=== PATIENT | female | born 1960 | race Caucasian/White ===

== ENCOUNTER → 2023-08-16 08:15 | Outpatient (REF) | payer MEDICARE, OTHER, SELFPAY | LOC: HWWDC 08:15 | PROVIDERS: ATTENDING PHYSICIAN Internal Medicine | DX: Z12.31 Encounter for screening mammogram for malignant neoplasm of breast (principal) | CPT/HCPCS: 77063; 77067 ==

== ENCOUNTER 2024-03-22 11:25 | Emergency (ER) | payer MEDICARE, OTHER, SELFPAY ==
[2024-03-22 11:27] VITALS: BP 133/83
--- NOTE | 2024-03-22 12:00 | ED.GENMED ---
History of Present Illness
<Brenna Huynh MD, Resident - Last Filed: 03/22/24 13:05>
General
Chief Complaint: Musculo-Skeletal Complaint
Time Seen by Provider: 03/22/24 11:47
History of Present Illness
History of Present Illness:
63-year-old female presenting with swelling and redness of right index finger. Patient notes she noticed swelling and pain of her right index finger after working with monet (roses) last . This Monday thorn was taken out by a
physician and patient was started on antibiotics (Keflex 500 4 times daily) by her PCP since yesterday. Denies fever, chills, drainage.
Review of Systems
<Brenna Huynh MD, Resident - Last Filed: 03/22/24 13:05>
Review of Systems
Constitutional: Reports no symptoms
EENT: Reports no symptoms
Respiratory: Reports no symptoms
Cardiac: Reports no symptoms
ABD/GI: Reports no symptoms
: Reports no symptoms
Musculoskeletal: Reports no symptoms
Skin: Reports other (Pain and swelling of distal right index finger)
Neurological: Reports no symptoms
Endocrine: Reports no symptoms
Hematologic/Lymphatic: Reports no symptoms
Psychiatric: Reports no symptoms
Phy Exam
<Brenna Huynh MD, Resident - Last Filed: 03/22/24 13:05>
Physical Exam
Physical Exam:
GENERAL: Alert , in no apparent distress
EYE: pupils equal and reactive
NECK: Supple, no significant adenopathy.
ENT: o/p clr, mmm.
CARDIAC: Regular rate and rhythm .
LUNGS: Clear breath sounds bilaterally, no acute respiratory distress, no wheezes/rales/rhonchi
ABDOMEN: Soft, without focal tenderness, no r/g, no cvat
NEUROLOGICAL: Alert and oriented, no focal neuro deficits
SKIN: Warm and dry, skin intact.
MUSCULOSKELETAL: Mild swelling and erythema of distal right index finger. No warmth no drainage. Range of motion normal.
PSYCH: Normal and appropriate interaction.
Course
<Brenna Huynh MD, Resident - Last Filed: 03/22/24 13:05>
Vital Signs
Initial and Last Documented VS:
Initial Vital Signs
Temp Pulse Resp BP Pulse Ox
36.8 C 69 16 133/83 98
03/22/24 11:27 03/22/24 11:27 03/22/24 11:27 03/22/24 11:27 03/22/24 11:27
Last Documented Vital Signs
Temp Pulse Resp BP Pulse Ox
36.8 C 69 16 133/83 98
03/22/24 11:27 03/22/24 11:27 03/22/24 11:27 03/22/24 11:27 03/22/24 11:27
<Edmundo Harding, DO - Last Filed: 03/22/24 13:11>
Vital Signs
Initial and Last Documented VS:
Initial Vital Signs
Temp Pulse Resp BP Pulse Ox
36.8 C 69 16 133/83 98
03/22/24 11:27 03/22/24 11:27 03/22/24 11:27 03/22/24 11:27 03/22/24 11:27
Last Documented Vital Signs
Temp Pulse Resp BP Pulse Ox
36.8 C 69 16 133/83 98
03/22/24 11:27 03/22/24 11:27 03/22/24 11:27 03/22/24 11:27 03/22/24 11:27
<Brenna Huynh MD, Resident - Last Filed: 03/22/24 13:05>
MDM/Problems Addressed
Differential Diagnosis Includes:
Right index finger cellulitis
MDM/Problems Addressed:
- Discussed case with ID physician, Dr. Caal. Recommended no work up for sporotrichosis is indicated. Pt advised to continue Keflex and return to the ED with worsening of symptoms.
<Brenna Huynh MD, Resident - Last Filed: 03/22/24 13:05>
*Critical Care Note
Total Time (30-74mins, 75-104mins- exclusive of procedures): Not Applicable
ED Attending Note
<Brenna Huynh MD, Resident - Last Filed: 03/22/24 13:05>
-
Portions of this chart may have been created with voice recognition software.� Occasional wrong word or��sound alike� substitutions may have occurred due to the inherent limitations of voice recognition software.
<Edmundo Harding DO - Last Filed: 03/22/24 13:11>
ED Attending Note
Patient seen and examined by attending physician: Yes
I performed the substantive portion of visit, reviewed & personally made and approve the management plan that is documented in note by myself or FABY.: Yes
ED Attending Note:
I evaluated the patient at bedside. ID was notified by the resident and Dr. Caal has low suspicion for sporotrichosis as that would typically take months to present.
Discharge Plan
Departure
Patient Disposition: Home (Routine Discharge)
Date of Disposition: 03/22/24
Time of Disposition: 13:03
Patient with high blood pressure during this ER visit?: No
Discharge Problem:
Cellulitis
Instructions: Cellulitis (Skin Infection), Adult ED
Referrals:
Danielle Marcelo DO [Family Provider] -
Activity Restrictions/Additional Instructions:
We notified the infectious disease doctor. He indicates that sporotrichosis would take months to present. Therefore I do not recommend any other changes. You can continue/finish the Keflex however do not see any need for admission to the hospital
or change in antibiotics.
Interventions
Interventions:
*Risk Screen - Suicide Last Done: 03/22/24 11:27
*General Assessment Last Done: 03/22/24 11:27
*Neglect/Abuse Screening Last Done: 03/22/24 11:27
*ED COVID-19 Vaccine History Last Done: 03/22/24 11:42
ED-Musculoskeletal Assessment Last Done: 03/22/24 11:44
Discharge Date and Time
Print Language: VINCENTIAN
== END 2024-03-22 13:17 | disposition home or self-care (01) ==
LOC: EMR 11:25
PROVIDERS: EMERGENCY PHYSICIAN Emergency Medicine; FAMILY PHYSICIAN Family Medicine
DX: L03.011 Cellulitis of right finger (principal)
CPT/HCPCS: 99282

== ENCOUNTER 2024-05-13 11:15 | Emergency (ER) | payer MEDICARE, OTHER, SELFPAY ==
[2024-05-13 11:55] VITALS: BP 128/82
--- NOTE | 2024-05-13 11:57 | ED.SKININJ ---
HPI-Injury
<Lissette Kim NP - Last Filed: 05/13/24 21:16>
General
Chief Complaint: Head Injury
Time Seen by Provider: 05/13/24 12:35
<Kallie Molina PA-C - Last Filed: 05/13/24 18:21>
General
Source: patient
Exam Limitations: none
Nursing documentation reviewed up to this point in time: agreed with
History of Present Illness-Injury
Is this injury a work related problem?: No
Is pt an associate of [facility]?: No
Initial Injury comments:
This is a 63-year-old female with past medical history of cholesterol takes 1 baby aspirin daily presents emergency department today with concerns of a scalp laceration. She reports that today she was going to put a large trash can that was on its
side into the upright position when she slipped on ice and fell forward into the sharp lid of the trash can, cutting her scalp. She does note a mild headache at the site. She denies dizziness, lightheadedness, chest pain, shortness of breath, neck
pain, chest pain, abdominal pain. After the injury happened, she got up on her own and felt okay but then she noticed blood all over the trash can and altered bystanders on the road who called EMS. She states that her tetanus needs to the be
updated.
ED Provider Triage
<Lissette Kim SELECTOR PACKER - Last Filed: 05/13/24 21:16>
-
Patient seen by provider in Triage?: Seen in Triage
Attestation: A medical screening examination has been initiated by a qualified medical provider. Based on the assessment performed at this time, it has been determined that an emergent medical condition may exist and the patient has been informed
that further medical evaluation and possible additional diagnostic testing may be needed.
HPI: In her driveway, pulling in her trash can, she slipped fell forward struck her frontal scalp on the edge of the trash can causing laceration. No LOC. Got herself up, saw blood, went back down on her knees, bystander saw her and called EMS. Pain
at sight of impact, no general headache. Pain 1/10 at site. No neuro deficits. Denies neck pain. Hard C collar removed in triage.
Had Tdap in 2019
GENERAL: Alert , in no apparent distress
EYE: No visual abnormalities.
NECK: Trachea midline
ENT: No visible abnormalities.
LUNGS: No acute respiratory distress
NEUROLOGICAL: Alert and oriented
SKIN: Skin intact. No visible changes.
MUSCULOSKELETAL: Moving extremities normally. No spinal bony tenderness.
PSYCH: Normal and appropriate interaction.
This is a medical evaluation conducted in person to initiate diagnostic evaluation and provide initial therapeutics. Please see further documentation by the treating clinician.
Review of Systems
<Kallie Molina PA-C - Last Filed: 05/13/24 18:21>
Review of Systems
All Other Systems: ROS reviewed and negative except as documented in HPI and ROS
Phy Exam
<Kallie Molina PA-C - Last Filed: 05/13/24 18:21>
Physical Exam
Physical Exam:
General: Patient is well appearing and in no acute distress; non-toxic
Skin: 5 cm bleeding curved laceration noted to the top of the scalp
Head: See above. Negative raccoon sign, negative werner sign
Eyes: Sclera non-icteric. EOMs intact. PERRLA.
Neck: Full range of motion of cervical spine, midline spinal tenderness noted
Cardiac: Regular rate and rhythm, no murmurs
Peripheral Vascular: No lower extremity swelling or edema
Pulm: Normal respiratory effort
Abdomen: No abdominal tenderness to palpation
MSK: 5/5 strength in bilateral upper and lower extremeties
Neuro: CN II-XII intact, no focal neurologic deficits.
Psychiatric: Appropriate mood and affect.
Course
<Lissette V. Day, SELECTOR PACKER - Last Filed: 05/13/24 21:16>
Orders/Labs/Results
Orders:
Orders
05/13/24 12:56
Tetanus/Diphth/Acelpertussis [Adacel] 0.5 ml IM .ONCE ONE
05/13/24 13:36
CT Head W/o Iv Contrast Urgent
Comment:
Reason For Exam: head trauma, headache
Vital Signs
Initial and Last Documented VS:
Initial Vital Signs
Temp Pulse Resp BP Pulse Ox
98.1 F 84 18 128/82 99
05/13/24 11:55 05/13/24 11:55 05/13/24 11:55 05/13/24 11:55 05/13/24 11:55
Last Documented Vital Signs
Temp Pulse Resp BP Pulse Ox
98.1 F 80 15 117/68 100
05/13/24 11:55 05/13/24 15:59 05/13/24 15:59 05/13/24 15:59 05/13/24 15:59
<Kallie Molina PA-C - Last Filed: 05/13/24 18:21>
Orders/Labs/Results
Orders:
Orders
05/13/24 12:56
Tetanus/Diphth/Acelpertussis [Adacel] 0.5 ml IM .ONCE ONE
05/13/24 13:36
CT Head W/o Iv Contrast Urgent
Comment:
Reason For Exam: head trauma, headache
Vital Signs
Initial and Last Documented VS:
Initial Vital Signs
Temp Pulse Resp BP Pulse Ox
98.1 F 84 18 128/82 99
05/13/24 11:55 05/13/24 11:55 05/13/24 11:55 05/13/24 11:55 05/13/24 11:55
Last Documented Vital Signs
Temp Pulse Resp BP Pulse Ox
98.1 F 80 15 117/68 100
05/13/24 11:55 05/13/24 15:59 05/13/24 15:59 05/13/24 15:59 05/13/24 15:59
<Rosie Munoz MD - Last Filed: 05/13/24 13:36>
Orders/Labs/Results
Orders:
Orders
05/13/24 12:56
Tetanus/Diphth/Acelpertussis [Adacel] 0.5 ml IM .ONCE ONE
05/13/24 13:36
CT Head W/o Iv Contrast Urgent
Comment:
Reason For Exam: head trauma, headache
Vital Signs
Initial and Last Documented VS:
Initial Vital Signs
Temp Pulse Resp BP Pulse Ox
98.1 F 84 18 128/82 99
05/13/24 11:55 05/13/24 11:55 05/13/24 11:55 05/13/24 11:55 05/13/24 11:55
Last Documented Vital Signs
Temp Pulse Resp BP Pulse Ox
98.1 F 80 15 117/68 100
05/13/24 11:55 05/13/24 15:59 05/13/24 15:59 05/13/24 15:59 05/13/24 15:59
Procedures
<Kallie Molina PA-C - Last Filed: 05/13/24 18:21>
Laceration Closure
middle scalp:
Status of Wound: clean
Size of Wound in cm: 5
Preparation: cleaned with saline
Anesthesia: 1% Lidocaine with epi
Revision/Debridement: routine- no revision
Wound exploration: explored to base- no FB
Type of Closure: single layer closure
Skin Closure Material: skin blaine
Number of sutures: 12
Additional information:
12 blaine
<Kallie Molina PA-C - Last Filed: 05/13/24 18:21>
MDM/Problems Addressed
Differential Diagnosis Includes:
see below
MDM/Problems Addressed:
NUMBER AND COMPLEXITY OF PROBLEMS ADDRESSED AT THE ENCOUNTER
� Chronic conditions affecting care: hlp
� Acute Exacerbation and/or Progression of Chronic Illness:
� Differential Diagnosis includes: scalp laceration, contusion, epidural hematoma, subdural hematoma, concussion
AMOUNT AND/OR COMPLEXITY OF DATA TO BE REVIEWED AND ANALYZED
� I performed an independent evaluation of and my interpretation is:
CT: no evidence for acute intracranial hemorrhage
Other:
� Review of other/old records: reviewed previous ER physician documentation from 03/22/2024, patient seen for cellulitis of index finger, no discharge summaries in [facility] to
� Clinical information was obtained by an independent historian: n/a
� Prescriptions/Medications Considered but not given: none
� Further testing considered but not performed: n/a
RISK OF COMPLICATIONS AND/OR MORBIDITY OR MORTALITY OF PATIENT MANAGEMENT
� Social determinants of health affecting care: none
� Discussion with other providers: ER attending
� Escalation of care including admission/observation vs risk of discharge considered:
63-year-old female presents emergency department today following injury to the head. She fell forward onto her trash can which was positioned horizontally on the ground and she endured a scalp laceration off of the sharp edge of the trash can lid.
She not lose consciousness. Physical exam she is well-appearing but she does have a large scalp laceration which was repaired with blaine. Patient tolerated the procedure well. Her tetanus was updated. Patient sent for CAT scan of the head
which was negative bleeding or fracture. Return precautions discussed with patient, patient stable for discharge.
<Kallie Molina PA-C - Last Filed: 05/13/24 18:21>
*Critical Care Note
Total Time (30-74mins, 75-104mins- exclusive of procedures): Not Applicable
ED Attending Note
<Lissette Kim NP - Last Filed: 05/13/24 21:16>
-
Portions of this chart may have been created with voice recognition software.� Occasional wrong word or��sound alike� substitutions may have occurred due to the inherent limitations of voice recognition software.
<Rosie Munoz MD - Last Filed: 05/13/24 13:36>
ED Attending Note
Patient seen and examined by attending physician: Yes
I performed the substantive portion of visit, reviewed & personally made and approve the management plan that is documented in note by myself or FABY.: Yes
ED Attending Note:
63-year-old female who was moving her trash can when she accidentally slipped and fell, striking her head on the edge of the can causing a laceration to the top of her head. She denies loss of consciousness. She has a very minimal headache. She
denies neck pain, chest pain, shortness of breath, palpitations, numbness, or other complaints. Tetanus is not yet up-to-date which we will do here. On exam, patient awake alert appropriate lucid. Laceration noted, and hope is in the process of
cleaning and repairing. CT head pending.
Discharge Plan
Departure
Patient Disposition: Home (Routine Discharge)
Date of Disposition: 05/13/24
Time of Disposition: 16:12
Patient with high blood pressure during this ER visit?: Yes
Condition: Good
Discharge Problem:
Head trauma
Instructions: Head Injury in Adults (DC), Laceration Repair With Blaine (DC), BLOOD PRESSURE
Referrals:
Danielle Marcelo, [Family Provider] -
Activity Restrictions/Additional Instructions:
Please report to the emergency department or your primary care provider in 10-12 days to have your blaine removed.
Please keep your wound dry for 24 hours. After 24 hours, you can allow mild soapy water to run over the wound.
PLEASE RETURN EMERGENCY DEPARTMENT SHOULD YOU EXPERIENCE PURULENT DRAINAGE FROM THE WOUND, FEVERS OR CHILLS, SURROUNDING REDNESS TO THE WOUND, INCREASING PAIN, INTRACTABLE NAUSEA OR VOMITING, PERSISTENT HEADACHES, OR ANY OTHER SIGNS OR SYMPTOMS
CONCERNING
Interventions
Interventions:
*Risk Screen - Suicide Last Done: 05/13/24 11:55
*General Assessment Last Done: 05/13/24 13:03
*Neglect/Abuse Screening Last Done: 05/13/24 11:55
ED- Fall Risk Assessment Last Done: 05/13/24 13:03
*ED COVID-19 Vaccine History Last Done: 05/13/24 13:03
*Nursing Disposition Last Done: 05/13/24 16:40
ED- Neurological Assessment Last Done: 05/13/24 13:03
ED-Skin Assessment Last Done: 05/13/24 13:03
Discharge Date and Time
Discharge Date/Time: 05/13/24 16:40
Print Language: HUNGARIAN
[2024-05-13 13:03] VITALS: BMI 20.3
--- NOTE | 2024-05-13 13:29 | EDRN ---
Mason RODRIGUEZ in room w/ pt stapling laceration on top of pt's head.
[2024-05-13] MEDS: ADACEL 0.5 ML IM (13:54)
[2024-05-13 14:02] VITALS: BP 128/72
[2024-05-13 15:59] VITALS: BP 117/68
--- NOTE | 2024-05-13 16:19 | EDRN ---
Mason RODRIGUEZ in room w/ pt.
--- NOTE | 2024-05-13 16:53 | EDRN ---
Blood and matted blood attempted to be washed out gently at this time w/ some success. R wrist abrasion cleansed w/ soap and water and dressed w/ bandaid.
== END 2024-05-13 16:40 | disposition home or self-care (01) ==
LOC: EMR 11:15
PROVIDERS: EMERGENCY PHYSICIAN Emergency Medicine; FAMILY PHYSICIAN Family Medicine
DX: S01.01XA Laceration without foreign body of scalp, initial encounter (principal); W00.0XXA Fall on same level due to ice and snow, initial encounter; E78.5 Hyperlipidemia, unspecified; Z23 Encounter for immunization
CPT/HCPCS: 12002; 90471; 99284; 70450; 90715

== ENCOUNTER 2025-02-15 12:33 | Emergency (ER) | payer MEDICARE, OTHER, SELFPAY ==
[2025-02-15 12:56] VITALS: BP 152/81
--- NOTE | 2025-02-15 14:44 | ED.GENMED ---
History of Present Illness
General
Chief Complaint: Head Injury
Source: patient and spouse
Exam Limitations: none
Time Seen by Provider: 02/15/25 14:15
Nursing documentation reviewed up to this point in time: agreed with
History of Present Illness
History of Present Illness:
Patient presents to ED after fall in her driveway this afternoon. Patient does not recall the event. However, her spouse, who was outside, heard patient yelling at that she had fallen. When spouse come to the patient quickly, she was on the
driveway with scrapes on her hands and face. He assisted patient back into the house. That is when, patient kept asking spouse what had happened repeatedly. When this behavior continued for next 2 hours, spouse became concerned and brought
patient to ED for an evaluation. Upon arrival in ED, patient is alert and awake, and has no physical complaints. Denies headache. Denies neck pain. Denies blurred vision. Denies loss of sensation or weakness. Denies difficulty with ambulation.
Denies recent illness. Denies recent change in medications or diet. However, patient once again is repeatedly asking her spouse what happened this morning. Patient does not take any blood thinning medications. Spouse states that she does not
seem to be having any difficulties recalling past events however.
Review of Systems
Review of Systems
Allergies reviewed?: Yes
All Other Systems: ROS reviewed and negative except as documented in HPI and ROS
Constitutional: Reports no symptoms
Respiratory: Reports no symptoms
Cardiac: Reports no symptoms
ABD/GI: Reports no symptoms
Musculoskeletal: Reports no symptoms; Denies neck pain or back pain
Skin: Reports other (Abrasion)
Neurological: Reports other (Confusion); Denies dizzy, headache or weakness
Phy Exam
Physical Exam
Physical Exam:
Physical Exam
General: mild distress, not acutely ill. afebrile
Neck: supple. normal range of motion
Heart: s1/s2 regular rate and rhythm
Lungs: no acute respiratory distress. clear bilaterally. chest wall nontender to palpation
Abdomen: normal bowel sounds. not tender.
Neuro: alert and oriented x 3. no focal neurological deficits. normal speech. normal gait
Skin: no rash
Psychiatric: well kept. interactive and cooperative but appears frustrated
Extremities: no edema. no calf tenderness.
Course
Orders/Labs/Results
Orders:
Orders
02/15/25 13:01
CT Head W/o Iv Contrast Urgent
Comment:
Reason For Exam: fall head injury, amnesia
Vital Signs
Initial and Last Documented VS:
Initial Vital Signs
Temp Pulse Resp BP Pulse Ox
98.8 F 78 20 152/81 100
02/15/25 12:56 02/15/25 12:56 02/15/25 12:56 02/15/25 12:56 02/15/25 12:56
Last Documented Vital Signs
Temp Pulse Resp BP Pulse Ox
98.8 F 78 20 152/81 100
02/15/25 12:56 02/15/25 12:56 02/15/25 12:56 02/15/25 12:56 02/15/25 14:45
MDM/Problems Addressed
MDM/Problems Addressed:
History and exam consistent with likely transient short-term memory loss from acute head injury. Otherwise, patient is afebrile, hemodynamically stable, and without any focal neurological deficit. As such, after extensive discussion with patient
and spouse, decision made to discharge patient home with recommendation to follow-up with PCP for reevaluation. Until then, advise rest and watching patient closely at home.
*Pulse Oximetry
SaO2: 100
Oxygen Mode of Delivery: Room air
Patient hypoxic: no
*Critical Care Note
Total Time (30-74mins, 75-104mins- exclusive of procedures): Not Applicable
ED Attending Note
-
Portions of this chart may have been created with voice recognition software.� Occasional wrong word or��sound alike� substitutions may have occurred due to the inherent limitations of voice recognition software.
Discharge Plan
Departure
Patient Disposition: Home (Routine Discharge)
Date of Disposition: 02/15/25
Time of Disposition: 14:53
Patient with high blood pressure during this ER visit?: Yes
Condition: Fair
Discharge Problem:
Concussion
Instructions: Concussion, Adult (DC), Head Injury in Adults (DC)
Referrals:
Josefa Tirado MD [Family Provider, Internal Medicine]
Activity Restrictions/Additional Instructions:
As discussed, please follow-up with your primary care physician for reevaluation. Please consider return to ED with worsening symptoms.
Interventions
Interventions:
*Risk Screen - Suicide Last Done: 02/15/25 12:56
*General Assessment Last Done: 02/15/25 12:56
*Neglect/Abuse Screening Last Done: 02/15/25 12:56
*ED COVID-19 Vaccine History Last Done: 02/15/25 12:56
*ED Influenza Vaccine History Last Done: 02/15/25 12:56
ED- Neurological Assessment Last Done: 02/15/25 14:45
ED-Skin Assessment Last Done: 02/15/25 14:45
Discharge Date and Time
Print Language: [email or web address]
== END 2025-02-15 15:00 | disposition home or self-care (01) ==
LOC: EMR 12:33
PROVIDERS: EMERGENCY PHYSICIAN Emergency Medicine; FAMILY PHYSICIAN Internal Medicine
DX: S06.0XAA Concussion with loss of consciousness status unknown, initial encounter (principal); W19.XXXA Unspecified fall, initial encounter; R03.0 Elevated blood-pressure reading, without diagnosis of hypertension
CPT/HCPCS: 99284; 70450